=== PATIENT | female | born 1935 | race Caucasian/White ===

== ENCOUNTER → 2021-09-19 | Outpatient (CLI) | payer MEDICARE ==
--- NOTE | 2021-09-19 16:29 | RAD ---
EXAM: Bladder sonogram. HISTORY: Urinary retention. TECHNIQUE: Sonographic imaging of the pelvis was performed. COMPARISON: None. FINDINGS: The prevoid bladder volume is 96 cc. The post void bladder residual is 0 cc. The bladder wa ll is normal for bladder volume. IMPRESSION: No post void bladder residual. Electronically signed by: Megan Vu MD (09/19/2021 4:27 PM) [facility]
== END ==
LOC: US 15:17
PROVIDERS: ATTEND Family Medicine
DX: R33.9 Retention of urine, unspecified (principal)
CPT/HCPCS: 76857